=== PATIENT | female | born 2000 | race Hispanic/Latino ===

== ENCOUNTER 2024-06-18 18:51 | Emergency (ER) | payer SELFPAY ==
[2024-06-18 18:53] VITALS: BP 123/85
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
[2024-06-18 19:31] VITALS: BP 122/74
[2024-06-18] MEDS: DILAUDID 0.5 MG IV ×3 (19:34→21:33)
[2024-06-18] MEDS: NSS 1000 IV (19:43)
[2024-06-18 20:00] VITALS: BP 118/78
[2024-06-18 21:00] VITALS: BP 116/71
[2024-06-18 22:00] VITALS: BP 117/69
== END 2024-06-18 22:15 | disposition short-term general hospital (02) ==
LOC: EMR 18:51
PROVIDERS: EMERGENCY PHYSICIAN Emergency Medicine
DX: T21.22XA Burn of second degree of abdominal wall, initial encounter (principal); T21.27XA Burn of second degree of female genital region, initial encounter; T24.212A Burn of second degree of left thigh, initial encounter; T24.211A Burn of second degree of right thigh, initial encounter; X12.XXXA Contact with other hot fluids, initial encounter; Y93.G3 Activity, cooking and baking
CPT/HCPCS: 99291; 96374; 96376; 96361

== ENCOUNTER 2025-05-30 15:48 | Emergency (ER) | payer OTHER, SELFPAY ==
[2025-05-30 15:51] VITALS: BP 141/85
--- NOTE | 2025-05-30 16:53 | ED.GENMED ---
History of Present Illness
General
Chief Complaint: Anxiety
Source: patient
Exam Limitations: none
Time Seen by Provider: 05/30/25 16:19
History of Present Illness
History of Present Illness:
24yoF with a history of anxiety presenting to the ED requesting a medication refill. Patient is Maced[place]-speaking and history is obtained with the assistance of a video science interpreter. Patient has been taking Xanax 2mg TID for over 2 years. It was
initially started while she was living in [place]. A physician in [place] has been prescribing her Xanax since 2023 due to her not having insurance. She recently acquired insurance and is scheduled to see a new PCP on 06/22/2025. She is going to
run out of her Xanax tomorrow and came to the ED to obtain a medication refill. She denies any suicidal ideations and has no other symptoms. She also takes escitalopram and amitriptyline.
PMDP reviewed and patient has been receiving prescriptions for alprazolam from Dr. Demarco Foreman in [place] dating back to July 2023. Last fill was 03/23/25 for a 30 day supply.
Past History
Past History
ED Past Medical History: Psychiatric (Anxiety)
ED Past Surgical History: None
Social History
Tobacco: Non-smoker
Alcohol: None
Drug: None
Personal: Other
Living: with family
Employment: Other
Family History
Family History: Other
Phy Exam
General Physical Exam
General Presentation: well appearing and no apparent distress
General age: appears stated age
General Skin: warm and dry
General Habitus: normal
General Mental: alert
ENT Exam
ENT Exam: normocephalic
Pulmonary Exam
Pulmonary Exam: no respiratory distress
Neurological Exam
Neurological Exam: alert
[place] Coma Scale
Eye Opening: Spontaneous
Verbal Response: Oriented
Motor Response: Obeys Commands
GCS Total Score: 15
Skin Exam
Skin Exam: normal color and warm/dry
Psychiatric Exam
Psychiatric Exam: normal mood/affect
Course
Vital Signs
Initial and Last Documented VS:
Initial Vital Signs
Temp Pulse Resp BP Pulse Ox
98.2 F 83 20 141/85 99
05/30/25 15:51 05/30/25 15:51 05/30/25 15:51 05/30/25 15:51 05/30/25 15:51
Last Documented Vital Signs
Temp Pulse Resp BP Pulse Ox
98.2 F 83 20 141/85 99
05/30/25 15:51 05/30/25 15:51 05/30/25 15:51 05/30/25 15:51 05/30/25 16:55
MDM/Problems Addressed
Differential Diagnosis Includes:
24yoF here requesting a refill for Xanax. No symptoms. No SI. Scheduled to see a new PCP on 06/22/25 and is requesting refill to get her through until this appt. Discussed with patient that we do not typically refill medications through the ED and
we are unable to provide several weeks of a controlled substance. Will prescribe her a 3 day supply until she is able to call her PCP or the provider that has been previously prescribing her medications as today is Sunday. Discussed that further
refills will have to come from her outpatient providers.
*Pulse Oximetry
SaO2: 99
Oxygen Mode of Delivery: Room air
Patient hypoxic: no
*Critical Care Note
Total Time (30-74mins, 75-104mins- exclusive of procedures): Not Applicable
ED Attending Note
-
Portions of this chart may have been created with voice recognition software.� Occasional wrong word or��sound alike� substitutions may have occurred due to the inherent limitations of voice recognition software.
Discharge Plan
Departure
Patient Disposition: Home (Routine Discharge)
Date of Disposition: 05/30/25
Time of Disposition: 17:01
Patient with high blood pressure during this ER visit?: No
Discharge Problem:
Encounter for medication refill
Instructions: Alprazolam
Prescriptions:
New
alprazolam 2 mg tablet
2 mg PO TID PRN (Reason: anxiety) Qty: 9 0RF
Activity Restrictions/Additional Instructions:
We are giving you a 3 day prescription for alprazolam. Further refills should come from your family doctor or the doctor who has been prescribing the alprazolam in the past.
Interventions
Interventions:
*Risk Screen - Suicide Last Done: 05/30/25 16:59
*General Assessment Last Done: 05/30/25 15:51
*Neglect/Abuse Screening Last Done: 05/30/25 16:49
*ED COVID-19 Vaccine History Last Done: 05/30/25 16:49
*ED Influenza Vaccine History Last Done: 05/30/25 16:49
[facility] Fall Risk Assessment Tool Last Done: 05/30/25 16:49
*Nursing Disposition Last Done: 05/30/25 17:14
ED-Psychological Assessment Last Done: 05/30/25 16:52
Discharge Date and Time
Discharge Date/Time: 05/30/25 17:14
Print Language: CROATIAN
== END 2025-05-30 17:14 | disposition home or self-care (01) ==
LOC: EMR 15:48
PROVIDERS: EMERGENCY PHYSICIAN Student in an Organized Health Care Education/Training Program
DX: Z76.0 Encounter for issue of repeat prescription (principal); F41.9 Anxiety disorder, unspecified; Z59.71 Insufficient health insurance coverage
CPT/HCPCS: 99281